=== PATIENT | male | born 1995 | race Caucasian/White ===

== ENCOUNTER 2018-11-11 09:36 | Emergency (ER) | payer OTHER, MEDICAID ==
[~2018-11-11] VITALS: Ht 182.9 cm; Wt 84.4 kg
[2018-11-11 09:40] VITALS: BP 140/80; Ht 182.9 cm; Wt 84.4 kg
== END 2018-11-11 10:23 | disposition home or self-care (01) ==
LOC: ED 09:36
DX: S13.4XXA Sprain of ligaments of cervical spine, initial encounter (principal); M54.6 Pain in thoracic spine; M54.5 Low back pain; J45.909 Unspecified asthma, uncomplicated; V49.49XA Driver injured in collision with other motor vehicles in traffic accident, initial encounter; Y93.I9 Activity, other involving external motion; Y92.413 State road as the place of occurrence of the external cause; Y99.8 Other external cause status